=== PATIENT | female | born 1985 | race African-American/Black ===

== ENCOUNTER 2018-09-17 00:49 | Emergency (ER) | payer MEDICAID ==
[~2018-09-17] VITALS: Ht 157.5 cm; Wt 100.0 kg
[2018-09-17 02:02] VITALS: BP 146/83
== END 2018-09-17 02:22 | disposition home or self-care (01) ==
LOC: ER 00:49
DX: F91.8 Other conduct disorders (principal); F12.10 Cannabis abuse, uncomplicated; F17.210 Nicotine dependence, cigarettes, uncomplicated
CPT/HCPCS: 82962; 99284

== ENCOUNTER 2018-12-08 19:01 | Emergency (ER) | payer MEDICAID ==
[~2018-12-08] VITALS: Ht 165.1 cm; Wt 91.0 kg
[2018-12-08 21:53] VITALS: BP 150/102
[2018-12-08] MEDS ORDERED: AMOXICILLIN/POTASSIUM CLAVULANATE 500/125MG TAB PO ONE (22:00)
== END 2018-12-08 22:16 | disposition home or self-care (01) ==
LOC: ER 19:15
DX: H10.9 Unspecified conjunctivitis (principal); H00.016 Hordeolum externum left eye, unspecified eyelid; F12.90 Cannabis use, unspecified, uncomplicated
CPT/HCPCS: 71045; 81025; 93970; 99284